=== PATIENT | female | born 1945 | race Caucasian/White ===

== ENCOUNTER 2018-09-09 17:26 | Emergency (ER) | payer MEDICARE, OTHER, SELFPAY ==
[2018-09-09 17:28] VITALS: BP 114/65; PULSE 88; RESP 14; TEMP 36.8; O2SAT 99
--- NOTE | 2018-09-09 17:37 | DI.RAD.S_ITS ---
PROCEDURE: XR CHEST 2V INDICATIONS: cough / shortness of breath/ chest pressure. TECHNIQUE: 2 views of the chest were acquired. COMPARISON: None. FINDINGS: Surgical changes and devices: None. Lungs and pleura: Mild patchy opacity within the right medial lung base. No pleural effusions or pneumothorax. Mediastinum: Mediastinal contours are normal. Heart size is normal. Bones and chest wall: No suspicious bony abnormalities. Soft tissues appear unremarkable. IMPRESSION: Mild right lung base pneumonia. Continued plain film surveillance is recommended to ensure resolution, and to exclude underlying or central malignancy. Dictated by: Sav Diaz M.D. on 09/09/2018 at 18:20 Approved by: Sav Diaz M.D. on 09/09/2018 at 18:20
[2018-09-09 18:19] LABS: Add Manual Diff / Slide Review NO; Basophils Absolute Auto 100 /uL (0-100); Basophils Percent Auto 0.5 % (0-2); Eosinophils Absolute Auto 0 /uL (0-450); Eosinophils Percent Auto 0.1 % (2-4); Hematocrit 37.3 % (36-46); Hemoglobin 12.5 g/dL (12.0-16.0); Lymphocytes Absolute Auto 1600 /uL (1100-4500); Mean Corpuscular HGB Conc 33.4 % (30-36); Mean Corpuscular Hemoglobin 28.4 PG (26-34); Mean Corpuscular Volume 84.9 fL (80-100); Monocytes Absolute Auto 1100 /uL (0-900); Monocytes Percent Auto 7.8 % (3-14); Neutrophils Absolute Auto 11600 /uL (1500-7000); Neutrophils Percent Auto 80.6 % (50-75); Platelet Count 292 X10^3/uL (150-400); Red Cell Distribution Width 14.1 % (11.6-14.8); White Blood Cell Count 14.3 X10^3/uL (4.5-11.0)
[2018-09-09 18:28] LABS: INR 3.4 (0.9-1.3)
[2018-09-09 18:30] LABS: PTT Partial Thromboplastin Tim 44 SECONDS (26.4-36.2)
[2018-09-09 18:33] LABS: Alanine Aminotransferase 19 IU/L (9-52); Albumin 3.7 g/dL (3.5-5.0); Albumin Globulin Ratio 1.5 (1.0-2.8); Alkaline Phosphatase 62 U/L (38-126); Aspartate Aminotransferase 14 IU/L (14-36); BUN Creatinine Ratio 14.3 (6-22); Bilirubin Total 0.7 mg/dL (0.2-1.3); Blood Urea Nitrogen 10 mg/dL (7-17); Calcium 8.8 mg/dL (8.4-10.2); Carbon Dioxide 29 mmol/L (22-32); Chloride 96 mmol/L (98-107); Creatine Kinase 45 U/L (30-135); Estimated Glomerular Filt Rate > 60.0 mL/min (>60); Globulin 2.5 g/dL (1.7-4.1); Glucose 125 mg/dL (80-110); HEMOLYSIS < 15 (0-50); Lipase 12 U/L (23-300); Potassium 3.1 mmol/L (3.4-5.1); Sodium 133 mmol/L (137-145); Total Protein 6.2 g/dL (6.3-8.2)
[2018-09-09 18:44] LABS: Troponin I < 0.012 ng/mL (0.01-0.034)
[2018-09-09 18:51] LABS: Procalcitonin < 0.05 ng/mL (<0.5)
[2018-09-09 19:06] VITALS: BP 111/57; PULSE 76; RESP 17; O2SAT 93
[2018-09-09] MEDS: POTASSIUM CHLORIDE 20 MEQ/15 ML UDC 40 MEQ PO (19:42)
--- NOTE | 2018-09-09 23:56 | ED.CHESTPAIN ---
HPI - Chest Pain General Chief Complaint: Chest Pain Stated Complaint: SENT BY [facility] Time Seen by Provider: 09/09/18 18:07 Source: patient and family Mode of arrival: ambulatory Limitations: no limitations History of Present Illness HPI narrative: 73-year-old female nonsmoker with history of pulmonary embolism and asthma presents from the walk-in clinic for evaluation of shortness of breath and cough. Patient has had chills but no measured fevers well as cough with production of sputum though no hemoptysis. She has some pleuritic type chest pain without radiation. She denies nausea, vomiting or diarrhea. She states she has a longstanding history of asthma and seasonal allergies but this episode is not responding like normal to all of her ?pulmonary toilet MD complaint: chest pain Onset (ago): day(s) Duration: intermittent Pain location: other Severity: mild Quality: sharp Pain radiation: none Relieving factors: rest Exacerbating factors: inspiration Context: recent illness Associated symptoms: dyspnea, fever and cough Treatments prior to arrival chest pain: none Related Data On Oral Contraceptives: No Home Medications Medication Instructions Recorded Confirmed Calcium 500 + D 1 tab PO BID 09/09/18 09/09/18 Xopenex HFA 1 puff INHALATION PRN PRN 09/09/18 09/09/18 amlodipine 10 mg PO QPM 09/09/18 09/09/18 esomeprazole magnesium 40 mg PO QAM 09/09/18 09/09/18 estradiol 1 g VAGINAL 2XW 09/09/18 09/09/18 [id number] 1 puff INHALATION DIRECTED 09/09/18 09/09/18 [Trelegy Ellipta] levothyroxine 25 mcg PO DAILY 09/09/18 09/09/18 metoprolol tartrate 25 mg PO BID 09/09/18 09/09/18 montelukast 10 mg PO QPM 09/09/18 09/09/18 olmesartan-hydrochlorothiazide 1 tab PO QAM 09/09/18 09/09/18 [Benicar HCT] prednisone 1 dose PO PRN PRN 09/09/18 09/09/18 warfarin 5 mg PO QPM 09/09/18 09/09/18 Previous Rx's Medication Instructions Recorded benzonatate [Tessalon Perles] 100 mg PO BID-TID PRN #10 cap 09/09/18 levofloxacin [Levaquin] 750 mg PO DAILY #7 tab 09/09/18 potassium chloride 20 meq PO DAILY #5 tab 09/09/18 Allergies Allergy/AdvReac Type Severity Reaction Status Date / Time hydromorphone [From Dilaudid] Allergy Severe Rash Verified 09/09/18 17:35 morphine Allergy Severe Hypotension Verified 09/09/18 17:35 cefprozil [From Cefzil] Allergy Intermediate Hives Verified 09/09/18 17:35 clindamycin Allergy Intermediate Diarrhea Verified 09/09/18 17:35 sulfamethoxazole Allergy Intermediate Hives Verified 09/09/18 17:35 [From Novra] tetracycline Allergy Intermediate Photosensit Verified 09/09/18 17:35 ivity trimethoprim [From Septra] Allergy Intermediate Hives Verified 09/09/18 17:35 clarithromycin [From Biaxin] AdvReac Severe Diarrhea Verified 09/09/18 17:35 Review of Systems Constitutional Reports chills, Reports fever(s), Denies lethargy and Denies weakness Eyes Denies change in vision, Denies eye discharge, Denies irritation and Denies loss of vision ENT Ears, Nose, Mouth, and Throat: Denies change in voice, Denies neck pain and Denies sore throat Cardiovascular Reports chest pain, Denies irregular heart rhythm, Denies lightheadedness, Denies palpitations, Reports dyspnea, Reports dyspnea on exertion and Denies orthopnea Respiratory Reports change in phlegm color, Reports chest congestion, Reports cough, Reports pain with cough, Reports dyspnea, Reports dyspnea on exertion and Reports wheezing Gastrointestinal Gastrointestinal: Denies abdominal pain, Denies change in bowel habits, Denies diarrhea, Denies nausea and Denies vomiting Genitourinary Denies hematuria, Denies flank pain, Denies urinary incontinence and Denies urinary urgency Musculoskeletal Denies neck pain Integumentary/Breasts Denies pruritus, Denies erythema, Denies rash and Denies wounds Neurologic Denies confusion, Denies loss of vision and Denies weakness Psychiatric Denies anxiety, Denies confusion, Denies depression, Denies homicidal ideation and Denies suicidal ideation Endocrine Denies palpitations Hematologic/Lymphatic Denies easy bruising Allergic/Immunologic Reports wheezing PFSH Social History Smoking Status: Never smoker Social History Smoking Status: Never smoker Exam Narrative Exam Narrative: GENERAL: 73-year-old female appears stated age, obviously uncomfortable with slight increased work of breathing HEAD: Atraumatic. Normocephalic. No temporal or scalp tenderness. EYES: Pupils equal round and reactive. Extraocular motions intact. No scleral icterus. No injection or drainage. ENT: Nose without bleeding, purulent drainage or septal hematoma. Throat without erythema, tonsillar hypertrophy or exudate. Uvula midline. Airway patent. NECK: Trachea midline. No JVD or lymphadenopathy. Supple, nontender, no meningeal signs. CARDIOVASCULAR: Regular rate and rhythm without murmurs, gallops, or rubs. RESPIRATORY: Mild expiratory wheeze with some crackles in the right mid lung, prolonged expiratory phase GASTROINTESTINAL: Abdomen soft, non-tender, nondistended. No hepato-splenomegaly, or palpable masses. No guarding. EXTREMITIES: No clubbing, cyanosis, or edema. No joint tenderness, effusion, or edema noted. BACK: Nontender without deformity or crepitance. No flank tenderness. NEURO: AOx3. SKIN: No rash or erythema. Initial Vital Signs Initial Vital Signs: Vital Signs Temperature 98.2 F 09/09/18 17:28 Pulse Rate 88 09/09/18 17:28 Respiratory Rate 14 09/09/18 17:28 Blood Pressure 114/65 09/09/18 17:28 Pulse Oximetry 99 09/09/18 17:28 Course Orders Ordered: ED Orders 09/09/18 17:37 Chest [XR chest 2V] Stat 09/09/18 17:55 EKG-12 Lead Stat 09/09/18 18:10 Complete Blood Count AUTO DIFF Stat Comprehensive Metabolic Panel Stat Lipase Stat Partial Thromboplastin Time Stat Procalcitonin Stat Prothrombin Time INR Stat Troponin & CK Cardiac Panel Stat Discontinued Medications Potassium Chloride (Potassium Chloride) 40 meq PO NOW ONE Stop: 09/09/18 19:39 Last Admin: 09/09/18 19:42 Dose: 40 meq Vital Signs - 8 hr 09/09/18 17:28 09/09/18 19:06 Temperature 98.2 F Pulse Rate 88 76 Respiratory Rate 14 17 Blood Pressure 114/65 Blood Pressure [Right Arm] 111/57 L Pulse Oximetry 99 93 MDM - Chest Pain Lab Data Result diagrams: 09/09/18 18:10 09/09/18 18:10 Lab Results 09/09/18 09/09/18 09/09/18 Range/Units 18:10 18:10 18:10 WBC 14.3 H (4.5-11.0) X10^3/uL RBC 4.40 (4.0-5.2) X10^6/uL Hgb 12.5 (12.0-16.0) g/dL Hct 37.3 (36-46) % MCV 84.9 (80-100) fL MCH 28.4 (26-34) PG MCHC 33.4 (30-36) % RDW 14.1 (11.6-14.8) % Plt Count 292 (150-400) X10^3/uL Neut % (Auto) 80.6 H (50-75) % Lymph % (Auto) 11.0 L (25-40) % Parmer % (Auto) 7.8 (3-14) % Eos % (Auto) 0.1 L (2-4) % Baso % (Auto) 0.5 (0-2) % Neut # (Auto) 90198 H (4179-5262) /uL Lymph # (Auto) 1600 (1346-7276) /uL Parmer # (Auto) 1100 H (0-900) /uL Eos # (Auto) 0 (0-450) /uL Baso # (Auto) 100 (0-100) /uL PT 40.0 H (10.1-12.7) SECONDS INR 3.4 H (0.9-1.3) APTT 44 H (26.4-36.2) SECONDS Sodium 133 L (137-145) mmol/L Potassium 3.1 L (3.4-5.1) mmol/L Chloride 96 L (98-107) mmol/L Carbon Dioxide 29 (22-32) mmol/L BUN 10 (7-17) mg/dL Creatinine 0.70 (0.52-1.04) mg/dL Estimated GFR > 60.0 (>60) mL/min BUN/Creatinine Ratio 14.3 (6-22) Glucose 125 H (80-110) mg/dL Calcium 8.8 (8.4-10.2) mg/dL Total Bilirubin 0.7 (0.2-1.3) mg/dL AST 14 (14-36) IU/L ALT 19 (9-52) IU/L Alkaline Phosphatase 62 (38-126) U/L Total Creatine Kinase 45 (30-135) U/L CK-MB (CK-2) TNP CK-MB (CK-2) Rel Index TNP Troponin I < 0.012 (0.01-0.034) ng/mL Total Protein 6.2 L (6.3-8.2) g/dL Albumin 3.7 (3.5-5.0) g/dL Globulin 2.5 (1.7-4.1) g/dL Albumin/Globulin Ratio 1.5 (1.0-2.8) Lipase 12 L (23-300) U/L Procalcitonin (<0.5) ng/mL 09/09/18 Range/Units 18:10 WBC (4.5-11.0) X10^3/uL RBC (4.0-5.2) X10^6/uL Hgb (12.0-16.0) g/dL Hct (36-46) % MCV (80-100) fL MCH (26-34) PG MCHC (30-36) % RDW (11.6-14.8) % Plt Count (150-400) X10^3/uL Neut % (Auto) (50-75) % Lymph % (Auto) (25-40) % Parmer % (Auto) (3-14) % Eos % (Auto) (2-4) % Baso % (Auto) (0-2) % Neut # (Auto) (5458-2265) /uL Lymph # (Auto) (7195-2198) /uL Parmer # (Auto) (0-900) /uL Eos # (Auto) (0-450) /uL Baso # (Auto) (0-100) /uL PT (10.1-12.7) SECONDS INR (0.9-1.3) APTT (26.4-36.2) SECONDS Sodium (137-145) mmol/L Potassium (3.4-5.1) mmol/L Chloride (98-107) mmol/L Carbon Dioxide (22-32) mmol/L BUN (7-17) mg/dL Creatinine (0.52-1.04) mg/dL Estimated GFR (>60) mL/min BUN/Creatinine Ratio (6-22) Glucose (80-110) mg/dL Calcium (8.4-10.2) mg/dL Total Bilirubin (0.2-1.3) mg/dL AST (14-36) IU/L ALT (9-52) IU/L Alkaline Phosphatase (38-126) U/L Total Creatine Kinase (30-135) U/L CK-MB (CK-2) CK-MB (CK-2) Rel Index Troponin I (0.01-0.034) ng/mL Total Protein (6.3-8.2) g/dL Albumin (3.5-5.0) g/dL Globulin (1.7-4.1) g/dL Albumin/Globulin Ratio (1.0-2.8) Lipase (23-300) U/L Procalcitonin < 0.05 (<0.5) ng/mL Imaging Data Chest x-ray: Radiologist's impression: [address] [address] XRay Report Signed Patient: Martina Mascorro#: [id number] : 7Acct:[id number] Age/Sex: 73 / FDate of Service: 09/09/18 Loc: ED Accession Number: [id number] Procedure: XR chest 2V Ordering Provider: Mercedes Jones MD PROCEDURE: XR CHEST 2V INDICATIONS: cough / shortness of breath/ chest pressure. TECHNIQUE: 2 views of the chest were acquired. COMPARISON: None. FINDINGS: Surgical changes and devices: None. Lungs and pleura: Mild patchy opacity within the right medial lung base. No pleural effusions or pneumothorax. Mediastinum: Mediastinal contours are normal. Heart size is normal. Bones and chest wall: No suspicious bony abnormalities. Soft tissues appear unremarkable. IMPRESSION: Mild right lung base pneumonia. Continued plain film surveillance is recommended to ensure resolution, and to exclude underlying or central malignancy. Dictated by: Sav Diaz M.D. on 09/09/2018 at 18:20 Approved by: Sav Diaz M.D. on 09/09/2018 at 18:20 [facility] Narrative Medical decision making narrative: Multiple etiologies for patient's symptoms considered including: [Coronary artery disease versus pulmonary embolism versus pneumonia versus asthma exacerbation versus other] Patient's symptoms improved or duration of stay with above-stated therapies. Findings and discharge diagnosis discussed with patient/family followed by verbalization of understanding Return precautions discussed with patient/family whom verbalize understanding. Discharge Plan Departure Patient Disposition: Home Clinical Impression: Pneumonia Qualifiers: Pneumonia type: due to unspecified organism Laterality: right Lung location: middle lobe of lung Qualified Code(s): J18.1 - Lobar pneumonia, unspecified organism Discharge Date/Time: 09/09/18 19:54 Interventions: ED Discharge Assessment Last Done: 09/09/18 19:53 Instructions: DI for Pneumonia -- Adult Activity Restrictions/Additional Instructions: *You have been diagnosed with [ Acute community-acquired pneumonia and low potassium] *What to do: *Hold your coumadin tomorrow, otherwise take medications as directed: your prescriptions have been electronically transmitted to the [facility] (formerly [facility] in [place] at your request *Follow up with your primary care provider in 2-3 days, call for an appointment. Let them know you were seen in the Emergency Department and that we ask that you be seen in follow up *Return to ER if you should have any new, worsening or concerning symptoms *Any antibiotics have the possibility of increasing your INR which can lead to bleeding problems, it is very important that you get your INR checked a few times during the week. Please proceed to the closest ER immediately if you develop any bleeding problems Prescriptions: New benzonatate [Tessalon Perles] 100 mg capsule 100 mg PO BID-TID PRN (Reason: cough) Qty: 10 RF: 0 levofloxacin [Levaquin] 750 mg tablet 750 mg PO DAILY Qty: 7 RF: 0 potassium chloride 20 mEq tablet extended release 20 meq PO DAILY Qty: 5 RF: 0 No Action prednisone 20 mg Tablet 1 dose PO PRN PRN (Reason: asthma) RF: 0 levothyroxine 25 mcg Tablet 25 mcg PO DAILY RF: 0 amlodipine 10 mg Tablet 10 mg PO QPM RF: 0 esomeprazole magnesium 40 mg Capsule,Delayed Release(Dr/Ec) 40 mg PO QAM RF: 0 warfarin 5 mg Tablet 5 mg PO QPM RF: 0 montelukast 10 mg Tablet 10 mg PO QPM RF: 0 estradiol 0.01 % (0.1 mg/gram) Cream 1 g VAGINAL 2XW RF: 0 olmesartan-hydrochlorothiazide [Benicar HCT] 40-25 mg Tablet 1 tab PO QAM RF: 0 metoprolol tartrate 25 mg Tablet 25 mg PO BID RF: 0 Trelegy Ellipta 100-62.5-25 mcg Blister With Device 1 puff inhalation DIRECTED RF: 0 Calcium 500 + D 1 tab PO BID RF: 0 Xopenex HFA 1 puff inhalation PRN PRN (Reason: Shortness Of Breath) RF: 0
--- NOTE | 2018-09-10 | ED_ITS ---
HPI - Chest Pain General Chief Complaint: Chest Pain Stated Complaint: SENT BY [facility] Time Seen by Provider: 09/09/18 18:07 Source: patient and family Mode of arrival: ambulatory Limitations: no limitations History of Present Illness HPI narrative: 73-year-old female nonsmoker with history of pulmonary embolism and asthma presents from the walk-in clinic for evaluation of shortness of breath and cough. Patient has had chills but no measured fevers well as cough with production of sputum though no hemoptysis. She has some pleuritic type chest pain without radiation. She denies nausea, vomiting or diarrhea. She states she has a longstanding history of asthma and seasonal allergies but this episode is not responding like normal to all of her ?pulmonary toilet MD complaint: chest pain Onset (ago): day(s) Duration: intermittent Pain location: other Severity: mild Quality: sharp Pain radiation: none Relieving factors: rest Exacerbating factors: inspiration Context: recent illness Associated symptoms: dyspnea, fever and cough Treatments prior to arrival chest pain: none Related Data On Oral Contraceptives: No Home Medications Medication Instructions Recorded Confirmed Calcium 500 + D 1 tab PO BID 09/09/18 09/09/18 Xopenex HFA 1 puff INHALATION PRN PRN 09/09/18 09/09/18 amlodipine 10 mg PO QPM 09/09/18 09/09/18 esomeprazole magnesium 40 mg PO QAM 09/09/18 09/09/18 estradiol 1 g VAGINAL 2XW 09/09/18 09/09/18 oxgsnqohrvm-kkaubpicl-jyqudrnv 1 puff INHALATION DIRECTED 09/09/18 09/09/18 [Trelegy Ellipta] levothyroxine 25 mcg PO DAILY 09/09/18 09/09/18 metoprolol tartrate 25 mg PO BID 09/09/18 09/09/18 montelukast 10 mg PO QPM 09/09/18 09/09/18 olmesartan-hydrochlorothiazide 1 tab PO QAM 09/09/18 09/09/18 [Benicar HCT] prednisone 1 dose PO PRN PRN 09/09/18 09/09/18 warfarin 5 mg PO QPM 09/09/18 09/09/18 Previous Rx's Medication Instructions Recorded benzonatate [Tessalon Perles] 100 mg PO BID-TID PRN #10 cap 09/09/18 levofloxacin [Levaquin] 750 mg PO DAILY #7 tab 09/09/18 potassium chloride 20 meq PO DAILY #5 tab 09/09/18 Allergies Allergy/AdvReac Type Severity Reaction Status Date / Time hydromorphone [From Dilaudid] Allergy Severe Rash Verified 09/09/18 17:35 morphine Allergy Severe Hypotension Verified 09/09/18 17:35 cefprozil [From Cefzil] Allergy Intermediate Hives Verified 09/09/18 17:35 clindamycin Allergy Intermediate Diarrhea Verified 09/09/18 17:35 sulfamethoxazole Allergy Intermediate Hives Verified 09/09/18 17:35 [From Novra] tetracycline Allergy Intermediate Photosensit Verified 09/09/18 17:35 ivity trimethoprim [From Septra] Allergy Intermediate Hives Verified 09/09/18 17:35 clarithromycin [From Biaxin] AdvReac Severe Diarrhea Verified 09/09/18 17:35 Review of Systems Constitutional Reports chills, Reports fever(s), Denies lethargy and Denies weakness Eyes Denies change in vision, Denies eye discharge, Denies irritation and Denies loss of vision ENT Ears, Nose, Mouth, and Throat: Denies change in voice, Denies neck pain and Denies sore throat Cardiovascular Reports chest pain, Denies irregular heart rhythm, Denies lightheadedness, Denies palpitations, Reports dyspnea, Reports dyspnea on exertion and Denies orthopnea Respiratory Reports change in phlegm color, Reports chest congestion, Reports cough, Reports pain with cough, Reports dyspnea, Reports dyspnea on exertion and Reports wheezing Gastrointestinal Gastrointestinal: Denies abdominal pain, Denies change in bowel habits, Denies diarrhea, Denies nausea and Denies vomiting Genitourinary Denies hematuria, Denies flank pain, Denies urinary incontinence and Denies urinary urgency Musculoskeletal Denies neck pain Integumentary/Breasts Denies pruritus, Denies erythema, Denies rash and Denies wounds Neurologic Denies confusion, Denies loss of vision and Denies weakness Psychiatric Denies anxiety, Denies confusion, Denies depression, Denies homicidal ideation and Denies suicidal ideation Endocrine Denies palpitations Hematologic/Lymphatic Denies easy bruising Allergic/Immunologic Reports wheezing PFSH Social History Smoking Status: Never smoker Social History Smoking Status: Never smoker Exam Narrative Exam Narrative: GENERAL: 73-year-old female appears stated age, obviously uncomfortable with slight increased work of breathing HEAD: Atraumatic. Normocephalic. No temporal or scalp tenderness. EYES: Pupils equal round and reactive. Extraocular motions intact. No scleral icterus. No injection or drainage. ENT: Nose without bleeding, purulent drainage or septal hematoma. Throat without erythema, tonsillar hypertrophy or exudate. Uvula midline. Airway patent. NECK: Trachea midline. No JVD or lymphadenopathy. Supple, nontender, no meningeal signs. CARDIOVASCULAR: Regular rate and rhythm without murmurs, gallops, or rubs. RESPIRATORY: Mild expiratory wheeze with some crackles in the right mid lung, prolonged expiratory phase GASTROINTESTINAL: Abdomen soft, non-tender, nondistended. No hepato- splenomegaly, or palpable masses. No guarding. EXTREMITIES: No clubbing, cyanosis, or edema. No joint tenderness, effusion, or edema noted. BACK: Nontender without deformity or crepitance. No flank tenderness. NEURO: AOx3. SKIN: No rash or erythema. Initial Vital Signs Initial Vital Signs: Vital Signs Temperature 98.2 F 09/09/18 17:28 Pulse Rate 88 09/09/18 17:28 Respiratory Rate 14 09/09/18 17:28 Blood Pressure 114/65 09/09/18 17:28 Pulse Oximetry 99 09/09/18 17:28 Course Orders Ordered: ED Orders 09/09/18 17:37 Chest [XR chest 2V] Stat 09/09/18 17:55 EKG-12 Lead Stat 09/09/18 18:10 Complete Blood Count AUTO DIFF Stat Comprehensive Metabolic Panel Stat Lipase Stat Partial Thromboplastin Time Stat Procalcitonin Stat Prothrombin Time INR Stat Troponin & CK Cardiac Panel Stat Discontinued Medications Potassium Chloride (Potassium Chloride) 40 meq PO NOW ONE Stop: 09/09/18 19:39 Last Admin: 09/09/18 19:42 Dose: 40 meq Vital Signs - 8 hr 09/09/18 17:28 09/09/18 19:06 Temperature 98.2 F Pulse Rate 88 76 Respiratory Rate 14 17 Blood Pressure 114/65 Blood Pressure [Right Arm] 111/57 L Pulse Oximetry 99 93 MDM - Chest Pain Lab Data Result diagrams: 09/09/18 18:10 09/09/18 18:10 Lab Results 09/09/18 09/09/18 09/09/18 Range/Units 18:10 18:10 18:10 WBC 14.3 H (4.5-11.0) X10^3/uL RBC 4.40 (4.0-5.2) X10^6/uL Hgb 12.5 (12.0-16.0) g/dL Hct 37.3 (36-46) % MCV 84.9 (80-100) fL MCH 28.4 (26-34) PG MCHC 33.4 (30-36) % RDW 14.1 (11.6-14.8) % Plt Count 292 (150-400) X10^3/uL Neut % (Auto) 80.6 H (50-75) % Lymph % (Auto) 11.0 L (25-40) % Douglas % (Auto) 7.8 (3-14) % Eos % (Auto) 0.1 L (2-4) % Baso % (Auto) 0.5 (0-2) % Neut # (Auto) 79540 H (3132-5264) /uL Lymph # (Auto) 1600 (7627-7340) /uL Douglas # (Auto) 1100 H (0-900) /uL Eos # (Auto) 0 (0-450) /uL Baso # (Auto) 100 (0-100) /uL PT 40.0 H (10.1-12.7) SECONDS INR 3.4 H (0.9-1.3) APTT 44 H (26.4-36.2) SECONDS Sodium 133 L (137-145) mmol/L Potassium 3.1 L (3.4-5.1) mmol/L Chloride 96 L (98-107) mmol/L Carbon Dioxide 29 (22-32) mmol/L BUN 10 (7-17) mg/dL Creatinine 0.70 (0.52-1.04) mg/dL Estimated GFR > 60.0 (>60) mL/min BUN/Creatinine Ratio 14.3 (6-22) Glucose 125 H (80-110) mg/dL Calcium 8.8 (8.4-10.2) mg/dL Total Bilirubin 0.7 (0.2-1.3) mg/dL AST 14 (14-36) IU/L ALT 19 (9-52) IU/L Alkaline Phosphatase 62 (38-126) U/L Total Creatine Kinase 45 (30-135) U/L CK-MB (CK-2) TNP CK-MB (CK-2) Rel Index TNP Troponin I < 0.012 (0.01-0.034) ng/mL Total Protein 6.2 L (6.3-8.2) g/dL Albumin 3.7 (3.5-5.0) g/dL Globulin 2.5 (1.7-4.1) g/dL Albumin/Globulin Ratio 1.5 (1.0-2.8) Lipase 12 L (23-300) U/L Procalcitonin (<0.5) ng/mL 09/09/18 Range/Units 18:10 WBC (4.5-11.0) X10^3/uL RBC (4.0-5.2) X10^6/uL Hgb (12.0-16.0) g/dL Hct (36-46) % MCV (80-100) fL MCH (26-34) PG MCHC (30-36) % RDW (11.6-14.8) % Plt Count (150-400) X10^3/uL Neut % (Auto) (50-75) % Lymph % (Auto) (25-40) % Douglas % (Auto) (3-14) % Eos % (Auto) (2-4) % Baso % (Auto) (0-2) % Neut # (Auto) (1404-7402) /uL Lymph # (Auto) (6083-5189) /uL Douglas # (Auto) (0-900) /uL Eos # (Auto) (0-450) /uL Baso # (Auto) (0-100) /uL PT (10.1-12.7) SECONDS INR (0.9-1.3) APTT (26.4-36.2) SECONDS Sodium (137-145) mmol/L Potassium (3.4-5.1) mmol/L Chloride (98-107) mmol/L Carbon Dioxide (22-32) mmol/L BUN (7-17) mg/dL Creatinine (0.52-1.04) mg/dL Estimated GFR (>60) mL/min BUN/Creatinine Ratio (6-22) Glucose (80-110) mg/dL Calcium (8.4-10.2) mg/dL Total Bilirubin (0.2-1.3) mg/dL AST (14-36) IU/L ALT (9-52) IU/L Alkaline Phosphatase (38-126) U/L Total Creatine Kinase (30-135) U/L CK-MB (CK-2) CK-MB (CK-2) Rel Index Troponin I (0.01-0.034) ng/mL Total Protein (6.3-8.2) g/dL Albumin (3.5-5.0) g/dL Globulin (1.7-4.1) g/dL Albumin/Globulin Ratio (1.0-2.8) Lipase (23-300) U/L Procalcitonin < 0.05 (<0.5) ng/mL Imaging Data Chest x-ray: Radiologist's impression: [address] [address] XRay Report Signed Patient: Martina Mascorro#: [id number] : 7Acct:[id number] Age/Sex: 73 / FDate of Service: 09/09/18 Loc: ED Accession Number: [id number] Procedure: XR chest 2V Ordering Provider: Mercedes Jones MD PROCEDURE: XR CHEST 2V INDICATIONS: cough / shortness of breath/ chest pressure. TECHNIQUE: 2 views of the chest were acquired. COMPARISON: None. FINDINGS: Surgical changes and devices: None. Lungs and pleura: Mild patchy opacity within the right medial lung base. No pleural effusions or pneumothorax. Mediastinum: Mediastinal contours are normal. Heart size is normal. Bones and chest wall: No suspicious bony abnormalities. Soft tissues appear unremarkable. IMPRESSION: Mild right lung base pneumonia. Continued plain film surveillance is recommended to ensure resolution, and to exclude underlying or central malignancy. Dictated by: Sav Diaz M.D. on 09/09/2018 at 18:20 Approved by: Sav Diaz M.D. on 09/09/2018 at 18:20 [facility] Narrative Medical decision making narrative: Multiple etiologies for patient's symptoms considered including: [Coronary artery disease versus pulmonary embolism versus pneumonia versus asthma exacerbation versus other] Patient's symptoms improved or duration of stay with above-stated therapies. Findings and discharge diagnosis discussed with patient/family followed by verbalization of understanding Return precautions discussed with patient/family whom verbalize understanding. Discharge Plan Departure Patient Disposition: Home Clinical Impression: Pneumonia Qualifiers: Pneumonia type: due to unspecified organism Laterality: right Lung location: middle lobe of lung Qualified Code(s): J18.1 - Lobar pneumonia, unspecified organism Discharge Date/Time: 09/09/18 19:54 Interventions: ED Discharge Assessment Last Done: 09/09/18 19:53 Instructions: DI for Pneumonia -- Adult Activity Restrictions/Additional Instructions: *You have been diagnosed with [ Acute community-acquired pneumonia and low potassium] *What to do: *Hold your coumadin tomorrow, otherwise take medications as directed: your prescriptions have been electronically transmitted to the [facility] in [place] at your request *Follow up with your primary care provider in 2-3 days, call for an appointment. Let them know you were seen in the Emergency Department and that we ask that you be seen in follow up *Return to ER if you should have any new, worsening or concerning symptoms *Any antibiotics have the possibility of increasing your INR which can lead to bleeding problems, it is very important that you get your INR checked a few times during the week. Please proceed to the closest ER immediately if you develop any bleeding problems Prescriptions: New benzonatate [Tessalon Perles] 100 mg capsule 100 mg PO BID-TID PRN (Reason: cough) Qty: 10 RF: 0 levofloxacin [Levaquin] 750 mg tablet 750 mg PO DAILY Qty: 7 RF: 0 potassium chloride 20 mEq tablet extended release 20 meq PO DAILY Qty: 5 RF: 0 No Action prednisone 20 mg Tablet 1 dose PO PRN PRN (Reason: asthma) RF: 0 levothyroxine 25 mcg Tablet 25 mcg PO DAILY RF: 0 amlodipine 10 mg Tablet 10 mg PO QPM RF: 0 esomeprazole magnesium 40 mg Capsule,Delayed Release(Dr/Ec) 40 mg PO QAM RF: 0 warfarin 5 mg Tablet 5 mg PO QPM RF: 0 montelukast 10 mg Tablet 10 mg PO QPM RF: 0 estradiol 0.01 % (0.1 mg/gram) Cream 1 g VAGINAL 2XW RF: 0 olmesartan-hydrochlorothiazide [Benicar HCT] 40-25 mg Tablet 1 tab PO QAM RF: 0 metoprolol tartrate 25 mg Tablet 25 mg PO BID RF: 0 Trelegy Ellipta 100-62.5-25 mcg Blister With Device 1 puff inhalation DIRECTED RF: 0 Calcium 500 + D 1 tab PO BID RF: 0 Xopenex HFA 1 puff inhalation PRN PRN (Reason: Shortness Of Breath) RF: 0
== END 2018-09-09 19:54 | disposition home or self-care (01) ==
PROVIDERS: Emergency Medicine; Emergency Provider Emergency Medicine
DX: J18.1 Lobar pneumonia, unspecified organism (principal); R07.9 Chest pain, unspecified; R06.00 Dyspnea, unspecified
CPT/HCPCS: 36415; 71046; 80053; 82550; 83690; 84145; 84484; 85025; 85610; 85730; 93005; 93010; 99283; 99285